=== PATIENT | female | born 1985 | race Caucasian/White ===

== ENCOUNTER 2021-06-27 21:30 | Observation (INO) ==
[2021-06-27 23:53] LABS: Eosinophils # (auto) 0.07 K/uL (0-0.5); Eosinophils % (auto) 0.4 %; Hematocrit (blood only) 45.4 % (37-47); Hemoglobin 15.1 g/dL (12.0-16.0); Immature Granulocytes # (auto) 0.07 K/uL (0.00-0.02); Immature Granulocytes % (auto) 0.4 %; Lymphocytes # (auto) 1.51 K/uL (1.2-3.4); Lymphocytes % (auto) 7.8 %; Mean Corpuscular Hemoglobin 29.8 pg (25-34); Mean Corpuscular Hgb Conc 33.3 g/dL (32-36); Mean Corpuscular Volume 89.7 fL (80-100); Mean Platelet Volume 8.7 fL (7.4-10.4); Monocytes # (auto) 1.01 K/uL (0.11-0.59); Monocytes % (auto) 5.2 %; Neutrophils # (auto) 16.76 K/uL (1.4-6.5); Neutrophils % (auto) 86.2 %; Platelet Count 305 K/uL (130-400); RDW Coefficient of Variation 13.8 % (11.5-14.5); RDW Standard Deviation 45.2 fL (36.4-46.3); Red Blood Count 5.06 M/uL (4.2-5.4); White Blood Count 19.42 K/uL (4.8-10.8)
[2021-06-28 00:09] LABS: Partial Thromboplastin Ratio 0.9; Partial Thromboplastin Time 22.8 Seconds (21.0-31.0); Prothrombin Time 10.5 Seconds (9.0-12.0)
[2021-06-28 00:10] LABS: Albumin Level 3.4 gm/dl (3.4-5.0); BUN Creatinine Ratio 7.9 (10-20); Calcium 8.7 mg/dl (8.5-10.1); Creatinine Clr Calc Pharmacy 72.7 ml/min; Est GFR (African American) 53.9 ml/min; Est GFR (Non-African American) 46.5 ml/min; Potassium 4.1 mmol/L (3.5-5.1)
[2021-06-28 00:14] LABS: Albumin Globulin Ratio 0.8 (0.9-2); Bilirubin,Total 0.8 mg/dl (0.2-1); Globulin 4.2 gm/dl (2.5-4.0); Total Protein 7.6 gm/dl (6.4-8.2); Troponin I 0.017 ng/ml (0-0.045)
--- NOTE | 2021-06-28 00:14 | Emergency Department Note ---
History of Present Illness General Chief complaint: Tachycardia Stated complaint: Illness Time Seen by Provider: 06/28/21 00:04 History of Present Illness Maximum Pain Intensity: 8 This is a 35-year-old female that presents to the emergency department via ambulance with complaints of "chest congestion, headache, possible seizure". The patient notes that yesterday she woke up with a headache and took some Tylenol. This seemed to help but last evening developed some chest congestion. It seemed to be worse into today. As she was trying to take a bath she then began vomiting and thinks she may have had a seizure. She notes that her believes he witnessed her having a seizure and the patient does not recall the event. She felt "faint" before the potential event. EMS was summoned. Patient does note some chest discomfort in the anterior chest at this time and pain with a deep breath. She also feels that she has some wheezing which is not typical for her. Patient does note that she smokes. She has never had this happen before. No seizure history. No history of MN or PE. Home Medications Medication Instructions Recorded Confirmed Type zmhpappisx-itfxvjrihapvi-hgvdhtyi 1 cap PO Q6H PRN 06/24/20 06/27/21 History 50 mg-300 mg-40 mg capsule (Fioricet) ibuprofen 200 mg tablet 200 mg PO Q6H PRN 06/24/20 06/27/21 History Allergies Allergy/AdvReac Type Severity Reaction Status Date / Time levofloxacin [From Levaquin] Allergy Severe SWELLING, Verified 06/27/21 21:43 HIVES, ITCHING Past Med/Surg History Medical History No pertinent past medical history Surgical History History of carpal tunnel release History of hernia surgery Hx of section Hx of hysterectomy Social History Smoking Status: Current every day smoker Tobacco Type: Cigarettes Hx Alcohol Use: Yes Alcohol type: wine Hx Substance Use: No Preferred Language: American Communication Ability: Effective Land Inspector Required: No Beliefs That Will Affect Care: None Current Living Situation: Spouse and Family Feels Safe at Home: Yes Assistive Devices: None Review of Systems A total of 10 systems reviewed and were otherwise negative Physical Exam Vital Signs Vital Signs - 24 hr 06/27/21 21:42 06/27/21 21:57 06/28/21 00:28 Temperature 37 C 37 C Temperature Source Oral Oral Pulse Rate 139 H Pulse Rate [Apical] 118 H Pulse Rhythm Regular Pulse Rhythm [Apical] Regular Pulse Strength Normal Pulse Strength [Apical] Normal Respiratory Rate 30 H 28 H Respiratory Effort / Characteristics Other Short of Breath Spontaneous Short of Breath Respiratory Depth Shallow Shallow Shallow Respiratory Pattern Rapid/Shallow Rapid/Shallow Rapid/Shallow Blood Pressure 129/73 Blood Pressure [Right Arm] 129/72 Blood Pressure Mean 91 Blood Pressure Mean [Right Arm] 91 Blood Pressure Position [Right Arm] Lying Pulse Oximetry 97 Oxygen Delivery Method Room Air Room Air Sepsis Recent Fever Within 48 Hours No Sepsis New/Unexplained Change in Mental Status No Sepsis Action Taken by Nursing Physician Notified 06/28/21 00:31 06/28/21 02:45 06/28/21 03:33 Temperature 37.5 C 38.9 C H 37.0 C Temperature Source Oral Oral Oral Pulse Rate 101 H Pulse Rate [Apical] 106 H 96 H Pulse Rhythm Regular Pulse Rhythm [Apical] Regular Regular Pulse Strength Pulse Strength [Apical] Normal Normal Respiratory Rate 19 16 Respiratory Effort / Characteristics Non-Labored Non-Labored Respiratory Depth Normal Normal Respiratory Pattern Regular Regular Blood Pressure Blood Pressure [Right Arm] 102/67 93/66 L Blood Pressure Mean Blood Pressure Mean [Right Arm] 78 75 Blood Pressure Position [Right Arm] Pulse Oximetry 97 97 Oxygen Delivery Method Room Air Room Air Sepsis Recent Fever Within 48 Hours Sepsis New/Unexplained Change in Mental Status Sepsis Action Taken by Nursing 06/28/21 04:30 06/28/21 05:33 Temperature Temperature Source Pulse Rate Pulse Rate [Apical] 94 H 75 Pulse Rhythm Pulse Rhythm [Apical] Pulse Strength Pulse Strength [Apical] Respiratory Rate 18 18 Respiratory Effort / Characteristics Respiratory Depth Normal Normal Respiratory Pattern Blood Pressure Blood Pressure [Right Arm] 125/76 103/67 Blood Pressure Mean Blood Pressure Mean [Right Arm] 92 79 Blood Pressure Position [Right Arm] Pulse Oximetry 96 95 Oxygen Delivery Method Room Air Room Air Sepsis Recent Fever Within 48 Hours Sepsis New/Unexplained Change in Mental Status Sepsis Action Taken by Nursing VITAL SIGNS - Vital signs and nursing notes were reviewed. Stable and afebrile. GENERAL -35-year-old female appearing her stated age who is in no acute distress but appears tired and short of breath. The patient seems to be out of breath when conversing. Communicates well with provider and answers questions appropriately. SKIN - Without rashes. No meningeal or petechial rash. HEAD - NC/AT. EYES - PERRL with EOMI bilaterally. Sclera anicteric. EARS - No deformities of external structures noted on gross examination bilaterally. No pain elicited with palpation of the tragus bilaterally. External auditory canals without discharge or otorrhea. Tympanic membranes pearly troy without retraction or bulging. No fluid or purulent material visualized behind the TM. Handle of malleus, umbo, cone of light, pars tensa/flaccid all easily visualized. NOSE - Midline and without cyanosis. No epistaxis or purulent drainage noted. Septum midline without deviation or septal hematoma noted. MOUTH/OROPHARYNX - Without perioral cyanosis. Buccal mucosa pink and moist and without leukoplakia. Tongue midline with equal elevation of palate bilaterally. No tonsillar hypertrophy, erythema, or exudates noted. Good dentition noted. No drooling, stridor, trismus, wheezing or tripoding. Normal phonation. NECK - Neck with FROM. No nuchal rigidity. LUNGS - Chest wall symmetric without accessory muscle use, intercostals retractions, or central cyanosis. Bilateral wheezing noted. CARDIAC - RRR with S1/S2. No murmur, rubs, or gallops appreciated. EXTREMITIES - No clubbing or peripheral cyanosis. +5/5 strength noted in UE/LE bilaterally. NEUROLOGIC - Cranial nerves II through XII grossly intact. PSYCH - A&Ox3 and cooperates fully with examiner. Pt is very pleasant and interacts well with examiner. Course Administered Medications Albuterol (Albut/Ipratrop 3mg/0.5mg Neb 3 Ml Vial) 3 ml NEB Q4R SHAHRZAD Stop: 07/28/21 06:59 Last Admin: 06/28/21 07:54 Dose: 3 ml Documented by: [id number] Lactated Ringer's (Lr) 1,000 mls @ 125 mls/hr IV .Q8H SHAHRZAD Stop: 06/28/21 22:49 Last Admin: 06/28/21 07:29 Dose: 125 mls/hr Documented by: [id number] Discontinued Medications Acetaminophen (Acetaminophen 325 Mg Tab) 650 mg PO NOW STA Stop: 06/28/21 02:45 Last Admin: 06/28/21 02:50 Dose: 650 mg Documented by: [id number] Sodium Chloride (Nss 1000ml) 1,000 mls @ 999 mls/hr IV .Q1H1M SHAHRZAD Stop: 06/28/21 03:45 Last Infusion: 06/28/21 03:51 Dose: 0 mls/hr Documented by: [id number] Admin: 06/28/21 02:50 Dose: 999 mls/hr Documented by: [id number] Ioversol (Optiray 320 125ml) 125 ml IV ONCE ONE Stop: 06/28/21 01:30 Last Admin: 06/28/21 01:30 Dose: 118 ml Documented by: [id number] Medical Decision Making Laboratory Data Result diagrams: 06/28/21 03:13 06/27/21 23:00 Lab Results 06/27/21 06/27/21 06/27/21 Range/Units 23:00 23:00 23:00 WBC 19.42 H (4.8-10.8) K/uL RBC 5.06 (4.2-5.4) M/uL Hgb 15.1 (12.0-16.0) g/dL Hct 45.4 (37-47) % MCV 89.7 (80-100) fL MCH 29.8 (25-34) pg MCHC 33.3 (32-36) g/dL RDW Std Deviation 45.2 (36.4-46.3) fL RDW Coeff of Luke 13.8 (11.5-14.5) % Plt Count 305 (130-400) K/uL MPV 8.7 (7.4-10.4) fL Immature Gran % (Auto) 0.4 % Neut % (Auto) 86.2 % Lymph % (Auto) 7.8 % Kidder % (Auto) 5.2 % Eos % (Auto) 0.4 % Baso % (Auto) 0.0 % Neut # (Auto) 16.76 H (1.4-6.5) K/uL Lymph # (Auto) 1.51 (1.2-3.4) K/uL Kidder # (Auto) 1.01 H (0.11-0.59) K/uL Eos # (Auto) 0.07 (0-0.5) K/uL Baso # (Auto) 0.00 (0-0.2) K/uL Immature Gran # (Auto) 0.07 H (0.00-0.02) K/uL PT 10.5 (9.0-12.0) Seconds INR 1.0 (0.9-1.1) APTT 22.8 (21.0-31.0) Seconds PTT Ratio 0.9 Sodium 139 (136-145) mmol/L Potassium 4.1 (3.5-5.1) mmol/L Chloride 108 H (98-107) mmol/L Carbon Dioxide 25 (21-32) mmol/L Anion Gap 6.0 (3-11) BUN 12 (7-18) mg/dl Creatinine 1.46 H (0.6-1.2) mg/dl Est Cr Clr Drug Dosing 72.7 ml/min Est GFR ( Amer) 53.9 ml/min Est GFR (Non-Af Amer) 46.5 ml/min BUN/Creatinine Ratio 7.9 L (10-20) Glucose 110 H (70-99) mg/dl Calcium 8.7 (8.5-10.1) mg/dl Total Bilirubin 0.8 (0.2-1) mg/dl AST 24 (15-37) U/L ALT 48 (12-78) U/L Alkaline Phosphatase 80 (45-117) U/L Troponin I 0.017 (0-0.045) ng/ml Total Protein 7.6 (6.4-8.2) gm/dl Albumin 3.4 (3.4-5.0) gm/dl Globulin 4.2 H (2.5-4.0) gm/dl Albumin/Globulin Ratio 0.8 L (0.9-2) Urine Color Urine Appearance (Clear) Urine pH (4.5-7.5) Ur Specific [place] (1.000-1.030) Urine Protein (Negative) Urine Glucose (UA) (Negative) Urine Ketones (Negative) Urine Blood (Negative) Urine Nitrite (Negative) Urine Bilirubin (Negative) Urine Urobilinogen (Negative) Ur Leukocyte Esterase (Negative) Urine WBC (Auto) (0-5) /hpf Urine RBC (Auto) (0-4) /hpf U Hyaline Cast (Auto) (0-5) /lpf U Epithel Cells (Auto) (0-5) /lpf Urine Bacteria (Auto) (Negative) Urine Crystals Calcium Oxalate Crystal (None Prsent) Urine Mucus (None Prsent) COVID-19 Eval Order SARS-CoV-2 (PCR) (Negative) 06/28/21 06/28/21 06/28/21 Range/Units 00:25 00:25 00:30 WBC (4.8-10.8) K/uL RBC (4.2-5.4) M/uL Hgb (12.0-16.0) g/dL Hct (37-47) % MCV (80-100) fL MCH (25-34) pg MCHC (32-36) g/dL RDW Std Deviation (36.4-46.3) fL RDW Coeff of Luke (11.5-14.5) % Plt Count (130-400) K/uL MPV (7.4-10.4) fL Immature Gran % (Auto) % Neut % (Auto) % Lymph % (Auto) % Kidder % (Auto) % Eos % (Auto) % Baso % (Auto) % Neut # (Auto) (1.4-6.5) K/uL Lymph # (Auto) (1.2-3.4) K/uL Kidder # (Auto) (0.11-0.59) K/uL Eos # (Auto) (0-0.5) K/uL Baso # (Auto) (0-0.2) K/uL Immature Gran # (Auto) (0.00-0.02) K/uL PT (9.0-12.0) Seconds INR (0.9-1.1) APTT (21.0-31.0) Seconds PTT Ratio Sodium (136-145) mmol/L Potassium (3.5-5.1) mmol/L Chloride (98-107) mmol/L Carbon Dioxide (21-32) mmol/L Anion Gap (3-11) BUN (7-18) mg/dl Creatinine (0.6-1.2) mg/dl Est Cr Clr Drug Dosing ml/min Est GFR ( Amer) ml/min Est GFR (Non-Af Amer) ml/min BUN/Creatinine Ratio (10-20) Glucose (70-99) mg/dl Calcium (8.5-10.1) mg/dl Total Bilirubin (0.2-1) mg/dl AST (15-37) U/L ALT (12-78) U/L Alkaline Phosphatase (45-117) U/L Troponin I (0-0.045) ng/ml Total Protein (6.4-8.2) gm/dl Albumin (3.4-5.0) gm/dl Globulin (2.5-4.0) gm/dl Albumin/Globulin Ratio (0.9-2) Urine Color Dark Yellow Urine Appearance Cloudy A (Clear) Urine pH 6.0 (4.5-7.5) Ur Specific [place] 1.031 H (1.000-1.030) Urine Protein 1+ H (Negative) Urine Glucose (UA) Negative (Negative) Urine Ketones Trace H (Negative) Urine Blood 1+ H (Negative) Urine Nitrite Negative (Negative) Urine Bilirubin Negative (Negative) Urine Urobilinogen Negative (Negative) Ur Leukocyte Esterase Negative (Negative) Urine WBC (Auto) 1-5 (0-5) /hpf Urine RBC (Auto) 0-4 (0-4) /hpf U Hyaline Cast (Auto) 0 (0-5) /lpf U Epithel Cells (Auto) >30 H (0-5) /lpf Urine Bacteria (Auto) 1+ H (Negative) Urine Crystals Not Reportable Calcium Oxalate Crystal Present A (None Prsent) Urine Mucus Present A (None Prsent) COVID-19 Eval Order Covid19 at [facility] SARS-CoV-2 (PCR) NEGATIVE (Negative) 06/28/21 Range/Units 03:13 WBC 16.35 H (4.8-10.8) K/uL RBC 4.37 (4.2-5.4) M/uL Hgb 13.1 (12.0-16.0) g/dL Hct 39.1 (37-47) % MCV 89.5 (80-100) fL MCH 30.0 (25-34) pg MCHC 33.5 (32-36) g/dL RDW Std Deviation 45.3 (36.4-46.3) fL RDW Coeff of Luke 13.8 (11.5-14.5) % Plt Count 279 (130-400) K/uL MPV 8.4 (7.4-10.4) fL Immature Gran % (Auto) 0.4 % Neut % (Auto) 79.8 % Lymph % (Auto) 13.0 % Kidder % (Auto) 6.4 % Eos % (Auto) 0.3 % Baso % (Auto) 0.1 % Neut # (Auto) 13.06 H (1.4-6.5) K/uL Lymph # (Auto) 2.13 (1.2-3.4) K/uL Kidder # (Auto) 1.04 H (0.11-0.59) K/uL Eos # (Auto) 0.05 (0-0.5) K/uL Baso # (Auto) 0.01 (0-0.2) K/uL Immature Gran # (Auto) 0.06 H (0.00-0.02) K/uL PT (9.0-12.0) Seconds INR (0.9-1.1) APTT (21.0-31.0) Seconds PTT Ratio Sodium (136-145) mmol/L Potassium (3.5-5.1) mmol/L Chloride (98-107) mmol/L Carbon Dioxide (21-32) mmol/L Anion Gap (3-11) BUN (7-18) mg/dl Creatinine (0.6-1.2) mg/dl Est Cr Clr Drug Dosing ml/min Est GFR ( Amer) ml/min Est GFR (Non-Af Amer) ml/min BUN/Creatinine Ratio (10-20) Glucose (70-99) mg/dl Calcium (8.5-10.1) mg/dl Total Bilirubin (0.2-1) mg/dl AST (15-37) U/L ALT (12-78) U/L Alkaline Phosphatase (45-117) U/L Troponin I (0-0.045) ng/ml Total Protein (6.4-8.2) gm/dl Albumin (3.4-5.0) gm/dl Globulin (2.5-4.0) gm/dl Albumin/Globulin Ratio (0.9-2) Urine Color Urine Appearance (Clear) Urine pH (4.5-7.5) Ur Specific [place] (1.000-1.030) Urine Protein (Negative) Urine Glucose (UA) (Negative) Urine Ketones (Negative) Urine Blood (Negative) Urine Nitrite (Negative) Urine Bilirubin (Negative) Urine Urobilinogen (Negative) Ur Leukocyte Esterase (Negative) Urine WBC (Auto) (0-5) /hpf Urine RBC (Auto) (0-4) /hpf U Hyaline Cast (Auto) (0-5) /lpf U Epithel Cells (Auto) (0-5) /lpf Urine Bacteria (Auto) (Negative) Urine Crystals Calcium Oxalate Crystal (None Prsent) Urine Mucus (None Prsent) COVID-19 Eval Order SARS-CoV-2 (PCR) (Negative) Imaging Data Radiologist's Impression: Chest CTA 06/28/21 00:12 CHEST CTA for PULMONARY ARTERIES CT DOSE: HISTORY: dyspnea, atypical chest pain, tachycardia TECHNIQUE: Multiaxial CT images of the chest were performed following the intravenous administration of contrast to evaluate the pulmonary arteries. Maximal intensity projection images were also obtained. A dose lowering technique was utilized adhering to the principles of ALARA. COMPARISON STUDY: None. FINDINGS: Normal caliber thoracic aorta with no evidence for dissection. The heart is normal in size. No pleural or pericardial effusions. Suboptimal opacification of the pulmonary arteries due to the timing of contrast. However, there are no filling defects within the pulmonary arteries to suggest a pulmonary embolus. Limited views of the upper abdomen demonstrate normal liver and spleen. Normal adrenal glands. No pleural or pericardial effusions. Normal esophagus. No mediastinal lymphadenopathy. A few prominent bilateral hilar lymph nodes with the largest on the right measuring 9 mm in short axis diameter. Central airways are patent. No pneumothorax. Tiny scattered centrilobular nodules seen throughout the majority the lungs. No focal lung consolidations. IMPRESSION: 1. No evidence for pulmonary embolus. 2. No focal lung consolidations. 3. Tiny scattered centrilobular nodules seen throughout the lungs. This could represent a mild infectious bronchiolitis or less likely hypersensitivity p neumonitis. ACT 112: Negative or not required by law. Electronically signed by: Jaspreet Hugo M.D. 06/28/2021 8:[address] 06/28/21 00:[address] DOSE: 1549.84 mGy.cm HISTORY: headache, possible seizure TECHNIQUE: Multiaxial CT images of the head were performed without the use of intravenous contrast. Automated exposure control was utilized for this study. A dose lowering technique was utilized adhering to the principles of ALARA. Comparison: None. Findings: Mild mucosal thickening within the paranasal sinuses. The mastoid air cells are clear. The calvarium and skull base are intact. The ventricles and sulci are within normal limits. There is no mass, hematoma, midline shift, or acute infarct. Impression: No acute intracranial abnormality. ACT 112: Negative or not required by law. Electronically signed by: Jaspreet Hugo M.D. 06/28/2021 7:21 AM Chest X-Ray 06/28/21 04:16 XR chest 1V portable CLINICAL HISTORY: wheezing, chest pain. COMPARISON STUDY: Chest radiograph June 27, 2021. FINDINGS: Lung volumes are normal. Lungs are clear. There is no pneumothorax or pleural effusion. Cardiac size is normal. Mediastinal contours are normal. There is no evidence for pulmonary edema. IMPRESSION: No acute cardiopulmonary findings. ACT 112: Negative or not required by law. Electronically signed by: Rudolph Mckoy M.D. 06/28/2021 8:[address] HEAD: Comparison: None. No ICH, mass effect or edema. No skull fracture. Mild mucosal thickening of the ethmoids and maxillary sinus mucosa, likely sequela of chronic sinusitis. No air-fluid level. Clear bilateral mastoids. Radiologist: Na Galvez MD Study ready at 01:43 and initial results transmitted at 02:10 CTA CHEST: No prior exam for comparison. Normal lung parenchyma with no acute cardiopulmonary disease. No pleural effusion or pneumothorax. No pulmonary embolus or aortic dissection. Normal cardiac size. Normal mediastinum. Unremarkable upper abdomen. Degenerative disease of the spine. Radiologist: Na Galvez MD Study ready at 01:43 and initial results transmitted at 02:11 [facility] Narrative Patient was seen and evaluated as above in room A02. Review was performed of nursing notes and vital signs. After obtaining a thorough history and physical examination the above work up was performed. Patient presents to us today via EMS. She has shortness of breath and chest tightness. The patient is conversationally dyspneic. On arrival the patient does have an elevated heart rate at 139. She is tachypneic at 30 respirations per minute. She is afebrile. O2 sat is appropriate. Patient appears tired. Options of care were discussed with the patient. IV access was established. Labs were drawn. Chest x-ray done per protocol prior to me seeing the patient noting the high volume and high acuity in the emergency department. Per my interpretation this chest x-ray was negative. Patient, noting her headache at this time with potential seizure activity at home witnessed by her with associated chest pain/ shortness of breath prompted a CT scan of the head and CTA of the chest noting her tachycardia on arrival and conversational dyspnea. The CTA was negative per stat rad. With the patient now having wheezing on examination post what potentially could have been a seizure event I am worried about aspiration. Patient does not recall the event. Throughout her stay here the patient continued with feeling short of breath. Her vital signs did normalize as she did receive some IV fluids here and p.o. Tylenol for the fever that developed during her stay. There is leukocytosis at 19.42. This was rechecked throughout her stay and persisted to be elevated at 16.35. Repeat chest x-ray performed several hours after the 1st to reevaluate for any potential developing pneumonia. This was negative per my interpretation. Patient continued to feel short of breath and unwell during her stay. Despite negative CTA I do believe that further evaluation and management the inpatient setting is warranted noting the patient's persistent dyspnea in the setting of potential seizure activity. The patient may have aspirated during this. No further seizure activity while here in the emergency department. It is important note that other than history provided by the patient, no evidence of seizure. Creatinine 1.46. Troponin negative. Urinalysis does not suggest infection and is likely contaminated sample. Covid testing negative. I discussed options with the patient and recommended further evaluation here in the inpatient setting and the patient is amenable to plan of care. No clear indication for antibiotics at this time however this will be clinically trended while the patient is here in the hospital. Case discussed with the hospitalist. Please refer to further documentation regarding her stay. Case was discussed with the attending physician. EKG was reviewed by myself and found to be Normal Sinus Rhythm at a rate of 132 beats per minute and per my interpretation reveals QTc 426. QRS 66. No definite ST elevation. Patient was seen during a period of high volume and high acuity. GCS: 15 In the evaluation and treatment of this patient the following differential diagnoses were entertained: MN, PE, pericarditis, costochondritis, seizure-like activity, acute intracranial hemorrhage, dissection, aspiration pneumonia, seizure activity, among others. Impression & Plan Dyspnea, Chest pain, Tachycardia, Illness Discharge Plan Visit Data Chief Complaint: Tachycardia Stated Complaint: Illness ED Provider: Kay Gurrola ED Midlevel Provider: Primo Powell Discharge Problem: Dyspnea, Chest pain, Tachycardia, Illness Patient Disposition: Admitted As Inpatient Condition: Good Discharge Instructions Interventions: ED Discharge Assessment Last Done: 06/28/21 06:16
[2021-06-28 00:46] LABS: Appearance Urine Cloudy (Clear); Bacteria Urine Automated 1+ (Negative); Bilirubin Urine Negative (Negative); Blood Urine 1+ (Negative); Color Urine Dark Yellow; Epithelial Cell Urine Auto >30 /lpf (0-5); Glucose Urine UA Negative (Negative); Ketones Urine Trace (Negative); Leukocyte Esterase Urine Negative (Negative); Nitrite Urine Negative (Negative); Protein Urine 1+ (Negative); RBC Urine Automated 0-4 /hpf (0-4); Specific Gravity Urine 1.031 (1.000-1.030); Urobilinogen Urine Negative (Negative)
[2021-06-28 01:17] LABS: Calcium Oxalate Crystals Urine Present (None Prsent); Cast Urine Automated 0 /lpf (0-5); Mucus Urine Present (None Prsent)
[2021-06-28] MEDS ORDERED: OPTIRAY 320 125ml IV ONE (01:29)
[2021-06-28] MEDS ORDERED: ACETAMINOPHEN 325 MG TAB PO STA (02:44)
[2021-06-28] MEDS ORDERED: SODIUM CHLORIDE 0.9% 1000ML 1,000 ML IV SCH (02:45)
[2021-06-28 03:23] LABS: Basophils # (auto) 0.01 K/uL (0-0.2); Basophils % (auto) 0.1 %; Eosinophils # (auto) 0.05 K/uL (0-0.5); Eosinophils % (auto) 0.3 %; Hematocrit (blood only) 39.1 % (37-47); Hemoglobin 13.1 g/dL (12.0-16.0); Immature Granulocytes # (auto) 0.06 K/uL (0.00-0.02); Immature Granulocytes % (auto) 0.4 %; Lymphocytes # (auto) 2.13 K/uL (1.2-3.4); Mean Corpuscular Hgb Conc 33.5 g/dL (32-36); Mean Corpuscular Volume 89.5 fL (80-100); Mean Platelet Volume 8.4 fL (7.4-10.4); Monocytes # (auto) 1.04 K/uL (0.11-0.59); Monocytes % (auto) 6.4 %; Neutrophils # (auto) 13.06 K/uL (1.4-6.5); Neutrophils % (auto) 79.8 %; Platelet Count 279 K/uL (130-400); RDW Coefficient of Variation 13.8 % (11.5-14.5); RDW Standard Deviation 45.3 fL (36.4-46.3); Red Blood Count 4.37 M/uL (4.2-5.4); White Blood Count 16.35 K/uL (4.8-10.8)
--- NOTE | 2021-06-28 05:45 | History & Physical Report ---
Date of Service June 28, 2021 Assessment & Plan (1) Illness: Plan: Patient feels ill with fever, chills, abdominal pain, nausea, vomiting, diarrhea, chest discomfort and SOB, RUIZ. Possible seizure. Covid negative. HR improved. Workup significant for leukocytosis with neutrophils and bands. Cr of 1.46 and detectable troponin. Uncertain cause. Suspect viral etiology, ?early PNA -Check Procalcitonin -Check influenza -Tylenol, Tessalon, Mucinex, DuoNeb PRN Plan: LR at 125mL/hr x 2 liters, monitor electrolytes, regular diet as tolerated Lovenox for ppx Code - full Dispo - Observation to medical. Seizure precautions History of Present Illness Chief Complaint: illness Primary Care Provider: Leno Clement MD 35yo female presenting with multiple complaints. In her usual state of health until yesterday - developed a headache and chest discomfort, not feeling well, nausea, vomiting, diarrhea and SOB. thinks she may have had a seizure. Still feeling very ill with cough, SOB and chest discomfort. Tachycardic, tachypneic and febrile in the ER HR improved with IVF No Covid-19 Vaccine. No known sick contacts Allergies Allergy/AdvReac Type Severity Reaction Status Date / Time levofloxacin [From Levaquin] Allergy Severe SWELLING, Verified 06/27/21 21:43 HIVES, ITCHING Home Medications Medication Instructions Recorded Confirmed Type dkgevasnky-ypzojbvhtzyjf-drluqwqw 1 cap PO Q6H PRN 06/24/20 06/27/21 History 50 mg-300 mg-40 mg capsule (Fioricet) ibuprofen 200 mg tablet 200 mg PO Q6H PRN 06/24/20 06/27/21 History Past Med/Surg History Social History Smoking Status: Current every day smoker Tobacco Type: Cigarettes Preferred Language: German Feels Safe at Home: Yes Review of Systems Review of Systems: All systems reviewed & are unremarkable except as noted in HPI & below Physical Exam Physical Exam: General: patient resting comfortably, NAD, ill in appearance Skin: warm, dry, intact, no rashes or lesions HEENT: NC/AT, PERRL, EOMI, anicteric sclera, conjunctiva without injection, external ear normal to inspection and nontender, nares patent, moist mucus membranes, dentition intact, no oropharyngeal lesions, neck supple, trachea midline, no LAD, no thyromegaly, no JVD Heart: +S1/S2, regular, no m/r/g Lungs: equal air entry bilaterally, coarse breath sounds with diffuse wheezing Abd: +BS, soft, NT/ND, no masses/organomegaly/ascites Ext: warm, 2+ pulses in UE/LE bilaterally, no clubbing/cyanosis or edema Neuro: nonfocal, patient AA&O x 4, speech intact, no facial droop, moving all ex tremities on command with equal strength 5/5 Results & Data Results & Data ([facility]) Vital Signs (Past 12 Hours) Vital Signs Temp Pulse Pulse Resp BP BP Pulse Ox 06/28/21 05:33 75 18 103/67 95 06/28/21 04:30 94 H 18 125/76 96 06/28/21 03:33 37.0 C 06/28/21 02:45 38.9 C H 96 H 16 93/66 L 97 06/28/21 00:31 37.5 C 101 H 106 H 19 102/67 97 06/27/21 21:57 37 C 118 H 28 H 129/72 06/27/21 21:42 37 C 139 H 30 H 129/73 97 Laboratory Results Laboratory Results WBC 16.35 K/uL (4.8-10.8) H 06/28/21 03:13 RBC 4.37 M/uL (4.2-5.4) 06/28/21 03:13 Hgb 13.1 g/dL (12.0-16.0) 06/28/21 03:13 Hct 39.1 % (37-47) 06/28/21 03:13 MCV 89.5 fL (80-100) 06/28/21 03:13 MCH 30.0 pg (25-34) 06/28/21 03:13 MCHC 33.5 g/dL (32-36) 06/28/21 03:13 RDW Std Deviation 45.3 fL (36.4-46.3) 06/28/21 03:13 RDW Coeff of Luke 13.8 % (11.5-14.5) 06/28/21 03:13 Plt Count 279 K/uL (130-400) 06/28/21 03:13 MPV 8.4 fL (7.4-10.4) 06/28/21 03:13 Immature Gran % (Auto) 0.4 % 06/28/21 03:13 Neut % (Auto) 79.8 % 06/28/21 03:13 Lymph % (Auto) 13.0 % 06/28/21 03:13 Casey % (Auto) 6.4 % 06/28/21 03:13 Eos % (Auto) 0.3 % 06/28/21 03:13 Baso % (Auto) 0.1 % 06/28/21 03:13 Neut # (Auto) 13.06 K/uL (1.4-6.5) H 06/28/21 03:13 Lymph # (Auto) 2.13 K/uL (1.2-3.4) 06/28/21 03:13 Casey # (Auto) 1.04 K/uL (0.11-0.59) H 06/28/21 03:13 Eos # (Auto) 0.05 K/uL (0-0.5) 06/28/21 03:13 Baso # (Auto) 0.01 K/uL (0-0.2) 06/28/21 03:13 Immature Gran # (Auto) 0.06 K/uL (0.00-0.02) H 06/28/21 03:13 PT 10.5 Seconds (9.0-12.0) 06/27/21 23:00 INR 1.0 (0.9-1.1) 06/27/21 23:00 APTT 22.8 Seconds (21.0-31.0) 06/27/21 23:00 PTT Ratio 0.9 06/27/21 23:00 Sodium 139 mmol/L (136-145) 06/27/21 23:00 Potassium 4.1 mmol/L (3.5-5.1) 06/27/21 23:00 Chloride 108 mmol/L (98-107) H 06/27/21 23:00 Carbon Dioxide 25 mmol/L (21-32) 06/27/21 23:00 Anion Gap 6.0 (3-11) 06/27/21 23:00 BUN 12 mg/dl (7-18) 06/27/21 23:00 Creatinine 1.46 mg/dl (0.6-1.2) H 06/27/21 23:00 Est Cr Clr Drug Dosing 72.7 ml/min 06/27/21 23:00 Est GFR ( Amer) 53.9 ml/min 06/27/21 23:00 Est GFR (Non-Af Amer) 46.5 ml/min 06/27/21 23:00 BUN/Creatinine Ratio 7.9 (10-20) L 06/27/21 23:00 Glucose 110 mg/dl (70-99) H 06/27/21 23:00 Calcium 8.7 mg/dl (8.5-10.1) 06/27/21 23:00 Total Bilirubin 0.8 mg/dl (0.2-1) 06/27/21 23:00 AST 24 U/L (15-37) 06/27/21 23:00 ALT 48 U/L (12-78) 06/27/21 23:00 Alkaline Phosphatase 80 U/L (45-117) 06/27/21 23:00 Troponin I 0.017 ng/ml (0-0.045) 06/27/21 23:00 Total Protein 7.6 gm/dl (6.4-8.2) 06/27/21 23:00 Albumin 3.4 gm/dl (3.4-5.0) 06/27/21 23:00 Globulin 4.2 gm/dl (2.5-4.0) H 06/27/21 23:00 Albumin/Globulin Ratio 0.8 (0.9-2) L 06/27/21 23:00 Urine Color Dark Yellow 06/28/21 00:30 Urine Appearance Cloudy (Clear) A 06/28/21 00:30 Urine pH 6.0 (4.5-7.5) 06/28/21 00:30 Ur Specific [place] 1.031 (1.000-1.030) H 06/28/21 00:30 Urine Protein 1+ (Negative) H 06/28/21 00:30 Urine Glucose (UA) Negative (Negative) 06/28/21 00:30 Urine Ketones Trace (Negative) H 06/28/21 00:30 Urine Blood 1+ (Negative) H 06/28/21 00:30 Urine Nitrite Negative (Negative) 06/28/21 00:30 Urine Bilirubin Negative (Negative) 06/28/21 00:30 Urine Urobilinogen Negative (Negative) 06/28/21 00:30 Ur Leukocyte Esterase Negative (Negative) 06/28/21 00:30 Urine WBC (Auto) 1-5 /hpf (0-5) 06/28/21 00:30 Urine RBC (Auto) 0-4 /hpf (0-4) 06/28/21 00:30 U Hyaline Cast (Auto) 0 /lpf (0-5) 06/28/21 00:30 U Epithel Cells (Auto) >30 /lpf (0-5) H 06/28/21 00:30 Urine Bacteria (Auto) 1+ (Negative) H 06/28/21 00:30 Urine Crystals Not Reportable 06/28/21 00:30 Calcium Oxalate Crystal Present (None Prsent) A 06/28/21 00:30 Urine Mucus Present (None Prsent) A 06/28/21 00:30 COVID-19 Eval Order Covid19 at [facility] 06/28/21 00:25 SARS-CoV-2 (PCR) NEGATIVE (Negative) 06/28/21 00:25 Code Status & VTE Plan VTE Prophylaxis Plan VTE Prophylaxis will be ordered: Yes PG Care Time/CCT Total # of Minutes Spent Total Time Spent with Patient: Total time spent is greater than 50% in coordination of care (as documented) at patient's floor/unit and/or counseling patient: Coding Level of Care Code INT OBSERVATION CARE 51M LVL 2 Diagnoses Illness R69
[2021-06-28] MEDS ORDERED: IBUPROFEN 200 MG TAB PO PRN (06:50)
[2021-06-28] MEDS ORDERED: ACETAMINOPHEN 325 MG TAB PO PRN (06:50)
--- NOTE | 2021-06-28 07:22 | CT Scan Report ---
HEAD CT NONCONTRAST CT DOSE: 1549.84 mGy.cm HISTORY: headache, possible seizure TECHNIQUE: Multiaxial CT images of the head were performed without the use of intravenous contrast. A utomated exposure control was utilized for this study. A dose lowering technique was utilized adheri ng to the principles of ALARA. Comparison: None. Findings: Mild mucosal thickening within the paranasal sinuses. The mastoid air cells are clear. The calvarium and skull base are intact. The ventricles and sulci are within normal limits. There is no m ass, hematoma, midline shift, or acute infarct. Impression: No acute intracranial abnormality. ACT 112: Negative or not required by law. Electronically signed by: Jaspreet Hugo M.D. 06/28/2021 7:21 AM
[2021-06-28] MEDS: LACTATED RINGER'S 1,000 ML IV SCH ×3 (07:29→22:10)
[2021-06-28] MEDS: ALBUT/IPRATROP 3MG/0.5MG NEB 3 ML VIAL NEB SCH ×5 (07:54→23:25)
--- NOTE | 2021-06-28 08:09 | CT Scan Report ---
CHEST CTA for PULMONARY ARTERIES CT DOSE: HISTORY: dyspnea, atypical chest pain, tachycardia TECHNIQUE: Multiaxial CT images of the chest were performed following the intravenous administration of contrast to evaluate the pulmonary arteries. Maximal intensity projection images were also obtaine d. A dose lowering technique was utilized adhering to the principles of ALARA. COMPARISON STUDY: None. FINDINGS: Normal caliber thoracic aorta with no evidence for dissection. The heart is normal in size. No pleural or pericardial effusions. Suboptimal opacification of the pulmonary arteries due to the t iming of contrast. However, there are no filling defects within the pulmonary arteries to suggest a p ulmonary embolus. Limited views of the upper abdomen demonstrate normal liver and spleen. Normal adre nal glands. No pleural or pericardial effusions. Normal esophagus. No mediastinal lymphadenopathy. A few prominent bilateral hilar lymph nodes with the largest on the right measuring 9 mm in short axis diameter. Central airways are patent. No pneumothorax. Tiny scattered centrilobular nodules seen thro ughout the majority the lungs. No focal lung consolidations. IMPRESSION: 1. No evidence for pulmonary embolus. 2. No focal lung consolidations. 3. Tiny scattered centrilobular nodules seen throughout the lungs. This could represent a mild infect ious bronchiolitis or less likely hypersensitivity pneumonitis. ACT 112: Negative or not required by law. Electronically signed by: Jaspreet Hugo M.D. 06/28/2021 8:08 AM
[2021-06-28 08:18] LABS: Creatine Kinase 219 U/L (26-192); Phosphorus 4.4 mg/dl (2.5-4.9); Troponin I < 0.015 ng/ml (0-0.045)
--- NOTE | 2021-06-28 08:21 | XRay Report ---
XR chest 1V portable CLINICAL HISTORY: wheezing, chest pain. COMPARISON STUDY: Chest radiograph June 27, 2021. FINDINGS: Lung volumes are normal. Lungs are clear. There is no pneumothorax or pleural effusion. Car diac size is normal. Mediastinal contours are normal. There is no evidence for pulmonary edema. IMPRESSION: No acute cardiopulmonary findings. ACT 112: Negative or not required by law. Electronically signed by: Rudolph Mckoy M.D. 06/28/2021 8:19 AM
--- NOTE | 2021-06-28 08:27 | XRay Report ---
XR chest 1V portable CLINICAL HISTORY: Chest Pain COMPARISON STUDY: No previous studies for comparison. FINDINGS: Lung volumes are normal. Lungs are clear. There is no pneumothorax or pleural effusion. Car diac size is normal. Mediastinal contours are normal. There is no evidence for pulmonary edema. There is subtle interstitial thickening. IMPRESSION: 1. No consolidation. 2. Mild nonspecific interstitial thickening. ACT 112: Negative or not required by law. Electronically signed by: Rudolph Mckoy M.D. 06/28/2021 8:26 AM
[2021-06-28] MEDS: BENZONATATE 100 MG CAPSULE PO SCH ×3 (08:35→20:18)
[2021-06-28] MEDS: ENOXAPARIN INJ 40 MG/0.4 ML SYR SQ SCH (08:36)
[2021-06-28] MEDS: guaiFENesin 600 MG TABCR PO SCH ×2 (08:36→20:18)
[2021-06-28 09:00] LABS: Pregnancy Test, Urine Negative (Negative)
[2021-06-28 09:36] LABS: BUN Creatinine Ratio 8.5 (10-20); Calcium 8.5 mg/dl (8.5-10.1); Creatinine Clr Calc Pharmacy 85.5 ml/min; Est GFR (African American) 66.9 ml/min; Est GFR (Non-African American) 57.8 ml/min; Potassium 3.6 mmol/L (3.5-5.1)
[2021-06-28 09:57] LABS: Adenovirus PCR Not Detected (NotDetected); Bordetella parapertussis PCR Not Detected (NotDetected); Bordetella pertussis PCR Not Detected (NotDetected); Chlamydia pneumoniae PCR Not Detected (NotDetected); Coronavirus 229E PCR Not Detected (NotDetected); Coronavirus CoV-2 (COVID19)PCR Not Detected (NotDetected); Coronavirus HKU1 PCR Not Detected (NotDetected); Coronavirus NL63 PCR Not Detected (NotDetected); Coronavirus OC43PCR Not Detected (NotDetected); Human Metapneumovirus PCR Not Detected (NotDetected); Influenza A PCR Not Detected (NotDetected); Influenza B PCR Not Detected (NotDetected); Mycoplasma pneumoniae PCR Not Detected (NotDetected); Parainfluenza Virus 1 PCR Not Detected (NotDetected); Parainfluenza Virus 2 PCR Not Detected (NotDetected); Parainfluenza Virus 3 PCR Not Detected (NotDetected); Parainfluenza Virus 4 PCR Not Detected (NotDetected); Respiratory Syncytial VirusPCR Not Detected (NotDetected)
[2021-06-28 10:03] LABS: Rhinovirus/Enterovirus PCR DETECTED (NotDetected)
--- NOTE | 2021-06-28 13:12 | History & Physical Bridge Note ---
Date of Service June 28, 2021 History & Physical Bridge Note I have examined the patient, reviewed the History & Physical and in the interval since the performance of the History & Physical I have noted the following changes of clinical significance: Pt feels improved with neb treatments, less wheezing and feels like she is now coughing up some sputum. SHe is motivated to quit smoking. No futher N/V/D since arrival but had that prior to when she passed out sitting on the toilet. SHe recalls vomiting and having diarrhea while on toilet, then felt faint and said out loud to "I feel like I'm going to pass out." and then next thing she knew she woke up on floor and EMS was there. It only takes the EMS about 5 min to get to her house. She had no post-ictal period. Her noted some convulsions but likely just vasovagal syncope. Had a fever and RUIZ on arrival which is now resolved. She is is eating and drinking, making urine. Did a [employer] which was positive for Entero/Rhinovirus and placed on isolation precautions. Vitals reviewed NAD, obese, pleasesant, AAOx3 PERRL, EOMI, smile symmetrical, no facial droop RRR no mgr Lungs with exp wheeze on right side, otherwise clear, some cough Abd +BS soft NT ND Ext no edema SKin no rashes Neuro-MAEW labs and Rads reviewed 35 yo female here with Rhino/Enterovirus bronchiolitis and vasovagal syncope, fever, mild renal insufficiency Much improved with tylenol, IVF hydration, neb treatments no indication for prednisone especially in setting of viral illness continue nebs, supportive care likely dc to home tomorrow
--- NOTE | 2021-06-28 18:55 | Electrocardiogram Report ---
Test Reason : Blood Pressure : / mmHG Vent. Rate : 132 BPM Atrial Rate : 132 BPM P-R Int : 158 ms QRS Dur : 066 ms QT Int : 288 ms P-R-T Axes : 066 063 060 degrees QTc Int : 426 ms Poor data quality, interpretation may be adversely affected Sinus tachycardia Nonspecific ST abnormality Abnormal ECG No previous ECGs available Confirmed by Kd Stiles ([id number]) on 06/28/2021 6:55:30 PM Referred By: REFERRED SELF Confirmed By:Dwayne Stiles
[2021-06-28] MEDS ORDERED: KETOROLAC TROMETHAMINE 15 MG/ML VIAL IV ONE (22:45)
[2021-06-29] MEDS ORDERED: SUMAtriptan succinate 6 MG/0.5 ML VIAL SQ STA (00:16)
[2021-06-29] MEDS: ALBUT/IPRATROP 3MG/0.5MG NEB 3 ML VIAL NEB SCH ×3 (03:11→11:20)
[2021-06-29 06:50] LABS: Basophils # (auto) 0.03 K/uL (0-0.2); Basophils % (auto) 0.5 %; Eosinophils # (auto) 0.37 K/uL (0-0.5); Eosinophils % (auto) 5.6 %; Hematocrit (blood only) 37.5 % (37-47); Hemoglobin 12.1 g/dL (12.0-16.0); Immature Granulocytes # (auto) 0.01 K/uL (0.00-0.02); Immature Granulocytes % (auto) 0.2 %; Lymphocytes # (auto) 2.77 K/uL (1.2-3.4); Lymphocytes % (auto) 41.7 %; Mean Corpuscular Hemoglobin 28.8 pg (25-34); Mean Corpuscular Hgb Conc 32.3 g/dL (32-36); Mean Corpuscular Volume 89.3 fL (80-100); Mean Platelet Volume 8.9 fL (7.4-10.4); Monocytes # (auto) 0.39 K/uL (0.11-0.59); Monocytes % (auto) 5.9 %; Neutrophils # (auto) 3.07 K/uL (1.4-6.5); Neutrophils % (auto) 46.1 %; Platelet Count 242 K/uL (130-400); RDW Standard Deviation 45.8 fL (36.4-46.3); White Blood Count 6.64 K/uL (4.8-10.8)
[2021-06-29 07:22] LABS: BUN Creatinine Ratio 8.2 (10-20); Calcium 8.2 mg/dl (8.5-10.1); Creatinine Clr Calc Pharmacy 99.3 ml/min; Est GFR (African American) 80.2 ml/min; Est GFR (Non-African American) 69.2 ml/min; Potassium 3.8 mmol/L (3.5-5.1)
[2021-06-29] MEDS: BENZONATATE 100 MG CAPSULE PO SCH (08:58)
[2021-06-29] MEDS: guaiFENesin 600 MG TABCR PO SCH (08:58)
[2021-06-29] MEDS: ENOXAPARIN INJ 40 MG/0.4 ML SYR SQ SCH (08:59)
--- NOTE | 2021-06-29 12:22 | Discharge Summary ---
Date of Service June 29, 2021 Admission HPI Per Admitting Provider 35yo female presenting with multiple complaints. In her usual state of health until yesterday - developed a headache and chest discomfort, not feeling well, nausea, vomiting, diarrhea and SOB. thinks she may have had a seizure. Still feeling very ill with cough, SOB and chest discomfort. Tachycardic, tachypneic and febrile in the ER HR improved with IVF No Covid-19 Vaccine. No known sick contacts Principal Diagnosis Entero/Rhinovirus bronchiolitis, viral syndrome, vasovagal syncope Discharge Exam Constitutional WD/WN, vitals as above Eyes PERRL, conjunctivae normal, anicteric sclerae ENMT external ear and nose normal, oropharynx normal Neck trachea midline, no thyromegaly Respiratory normal respiratory effort; no cough Auscultation: + wheezes (scattered bilat exp wheeze,mild); no rales and no rhonchi Cardiovascular RRR, no murmur, no edema Chest (Breasts) Chest: normal inspection of chest Gastrointestinal (Abdomen) normal bowel sounds, soft, nontender, no hepatosplenomegaly Musculoskeletal Extremities: extremities normal to inspection; no cyanosis and no clubbing Skin no rashes, warm and dry Neurologic moves all extremities and awake; no focal motor deficits Psychiatric A+Ox3, euthymic affect Lymphatic no lymphedema Discharge Data Allergies Allergy/AdvReac Type Severity Reaction Status Date / Time levofloxacin [From Levaquin] Allergy Severe SWELLING, Verified 06/27/21 21:43 HIVES, ITCHING Consultations 06/28/21 04:52 ED Decision to Admit Stat Ordered Studies 06/28/21 00:12 CT angio chest PE protocol Urgent CT head/brain wo con Urgent Chest X-Ray 06/27/21 23:18 XR chest 1V portable CLINICAL HISTORY: Chest Pain COMPARISON STUDY: No previous studies for comparison. FINDINGS: Lung volumes are normal. Lungs are clear. There is no pneumothorax or pleural effusion. Cardiac size is normal. Mediastinal contours are normal. There is no evidence for pulmonary edema. There is subtle interstitial thickening. IMPRESSION: 1. No consolidation. 2. Mild nonspecific interstitial thickening. ACT 112: Negative or not required by law. Electronically signed by: Rudolph Mckoy M.D. 06/28/2021 8:26 AM Chest CTA 06/28/21 00:12 CHEST CTA for PULMONARY ARTERIES CT DOSE: HISTORY: dyspnea, atypical chest pain, tachycardia TECHNIQUE: Multiaxial CT images of the chest were performed following the intravenous administration of contrast to evaluate the pulmonary arteries. Maximal intensity projection images were also obtained. A dose lowering technique was utilized adhering to the principles of ALARA. COMPARISON STUDY: None. FINDINGS: Normal caliber thoracic aorta with no evidence for dissection. The heart is normal in size. No pleural or pericardial effusions. Suboptimal opacification of the pulmonary arteries due to the timing of contrast. However, there are no filling defects within the pulmonary arteries to suggest a pulmonary embolus. Limited views of the upper abdomen demonstrate normal liver and spleen. Normal adrenal glands. No pleural or pericardial effusions. Normal esophagus. No mediastinal lymphadenopathy. A few prominent bilateral hilar lymph nodes with the largest on the right measuring 9 mm in short axis diameter. Central airways are patent. No pneumothorax. Tiny scattered centrilobular nodules seen throughout the majority the lungs. No focal lung consolidations. IMPRESSION: 1. No evidence for pulmonary embolus. 2. No focal lung consolidations. 3. Tiny scattered centrilobular nodules seen throughout the lungs. This could represent a mild infectious bronchiolitis or less likely hypersensitivity pneumonitis. ACT 112: Negative or not required by law. Electronically signed by: Jaspreet Hugo M.D. 06/28/2021 8:[address] 06/28/21 00:[address] DOSE: 1549.84 mGy.cm HISTORY: headache, possible seizure TECHNIQUE: Multiaxial CT images of the head were performed without the use of intravenous contrast. Automated exposure control was utilized for this study. A dose lowering technique was utilized adhering to the principles of ALARA. Comparison: None. Findings: Mild mucosal thickening within the paranasal sinuses. The mastoid air cells are clear. The calvarium and skull base are intact. The ventricles and sulci are within normal limits. There is no mass, hematoma, midline shift, or acute infarct. Impression: No acute intracranial abnormality. ACT 112: Negative or not required by law. Electronically signed by: Jaspreet Hugo M.D. 06/28/2021 7:21 AM Chest X-Ray 06/28/21 04:16 XR chest 1V portable CLINICAL HISTORY: wheezing, chest pain. COMPARISON STUDY: Chest radiograph June 27, 2021. FINDINGS: Lung volumes are normal. Lungs are clear. There is no pneumothorax or pleural effusion. Cardiac size is normal. Mediastinal contours are normal. There is no evidence for pulmonary edema. IMPRESSION: No acute cardiopulmonary findings. ACT 112: Negative or not required by law. Electronically signed by: Rudolph Mckoy M.D. 06/28/2021 8:19 AM Hospital Course (1) Acute bronchitis due to Rhinovirus: 35 yo female here with Rhino/Enterovirus bronchiolitis and vasovagal syncope, fever, mild renal insufficiency, N/V/D all related to her viral syndrome Her daughter also had a very recent URI COVID negative but tested positive for RHino/Enterovirus on [employer] resp panel Much improved with tylenol, IVF hydration, neb treatments with bronchodilators no indication for prednisone especially in setting of viral illness -dc to home with Mucinex, Tessalon perles, albuterol HFA given ongoing wheezing. Is not requiring O2 and is radha po, no further N/V/D, fevers resolving, tachycardia resoled, leukocytosis resolved SHe is motivated to quit smoking due to this recent illness-encouraged her to do so Stable for dc to home (2) Sepsis: Sepsis, POA with fever, leukocytosis, tachycardia secondary to Rhino/Enterovirus Now resolved Blood cultures no growth over 24 hours (3) Vasovagal syncope: secondary to N/V/D SHe recalls vomiting and having diarrhea while on toilet at home, then felt faint and said out loud to "I feel like I'm going to pass out." and then next thing she knew she woke up on floor and EMS was there. It only takes the EMS about 5 min to get to her house. She had no post-ictal period. 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 and now normal at 1.0 after IVF hydration secondary to prerenal from dehydration with GI illness Lovenox for DVT proph given Code - full Dispo - dc to home Total Time Total Time Spent Total Time Spent (In Minutes): 35 min Discharge Plan Discharge Items Patient Disposition: Home - Self-Care Reason For Visit: Illness Discharge Diagnosis: Entero/Rhinovirus bronchiolitis, viral syndrome, vasovagal syncope (passing out) Condition on Discharge: Good Activity: As commented below Lifting: Gradually increase as tolerated Bathing: No limitations Exercise/Sports: Gradually increase as tolerated Driving/Machine Use: No limitations Non-emergency contact: Primary Care Provider Call non-emergency contact if: you have any medication questions and your symptoms worsen Follow-up/Referrals: Leno Clement MD [Primary Care Provider] - (Please follow up within 1-2 weeks.) Diet: Regular Addtl Attending Provider Instructions: You were admitted with a febrile illness after passing out and found to have a viral bronchiolitis (infection of the airways of the lungs) due to Entero/Rhinovirus. Please continue to use the albuterol inhaler every 4 hours for wheezing and cough. It is very important to continue to not smoke cigarettes. This can be tough to quit, but I encourage you to continue trying as we discussed. You passed out likely due to the vomiting and diarrhea that you had. Sometimes this can cause some convulsions, but it is not a true seizure. Follow up with your PCP within 1-2 weeks after discharge. Pending Studies at Discharge: Yes (Final blood culture results-no growth to date ) Stand-Alone Forms: My [facility] [employer], Work/School Release, Smoking Cessation Medications and DC Order Prescriptions: New benzonatate [Tessalon Perles] 100 mg Capsule 100 mg PO TID PRN (Reason: cough) Qty: 20 RF: 0 guaifenesin [Mucinex] 600 mg Tablet Extended Release 12hr 1,200 mg PO Q12 Qty: 30 RF: 0 albuterol sulfate 90 mcg/actuation HFA aerosol inhaler 2 inh inhalation Q4H PRN (Reason: shortness of breath or wheezing) Qty: 8.5 RF: 0 Continued ibuprofen 200 mg Tablet 200 mg PO Q6H PRN (Reason: Pain) RF: 0 qbakzlrlcb-msuohhbjpsroo-qyor [Fioricet] 50-300-40 mg Capsule 1 cap PO Q6H PRN (Reason: Migraine Headache) RF: 0 Discharge Orders: Discharge Order (Routine); Ordered 06/29/21 Ordered By: Angella Amato Admission Data Admit Date/Time: 06/28/21 05:36 Attending Provider: Angella Amatoit Provider: Bettye Saldivar Primary Care Provider: Leno Clement Other Providers: Bettye Saldivar Coding Level of Care Code 20535 OBS Care - Discharge Diagnoses Acute bronchitis due to Rhinovirus J20.6 Vasovagal syncope R55 Asthma J45.909 Current smoker F17.200 FRANCHESCA (acute kidney injury) N17.9 Sepsis A41.9
== END 2021-06-29 13:26 | disposition home or self-care (01) ==
LOC: ED 21:30 → 3N 21:30 → SUATTDRO 06-28 05:36 → 3N 06-28 06:16